=== PATIENT | female | born 1985 | race Caucasian/White ===

== ENCOUNTER 2018-12-27 10:04 | Day surgery (SDC) | payer BC ==
[2018-12-27] MEDS ORDERED: LIDOCAINE 1% W/EPI 1:200,000 MPF 30ML SQ ONE (12:01)
--- NOTE | 2018-12-27 13:01 | Operative Note ---
DATE OF SURGERY: 12/27/2018 PREOPERATIVE DIAGNOSIS: Painful ganglion of the right ring finger. POSTOPERATIVE DIAGNOSIS: Painful ganglion of the right ring finger. OPERATION: Removal of tiny ganglion right ring finger. STAFF SURGEON: Emil Carmona MD ANESTHESIA: Local digital block. PREPARATION: Chloraprep. INDIVIDUAL CONSIDERATIONS: None. PROCEDURE: The patient was taken to the operating room and placed supine on the operating room table. Her right hand was prepped and draped in the usual fashion. She had a successful induction of a digital block with 2% lidocaine. She had a small V incision basically at the radial side of the DIP joint of the finger. Sharp dissection carried down just through the skin, and then once through the skin, I just basically tried to express the ganglion out. There was a tiny I would say 1.5 mm ganglion just above the flexor tendon on a stalk, which I brought superficially and just carefully removed this. Tourniquet let down and then hemostasis was obtained just with compression. After irrigation, I approximated the skin with 4-0 nylon, and a sterile bulky dressing was applied. She was taken back to recovery in good condition. There were no complications. ALEX
== END 2018-12-27 12:30 | disposition home or self-care (01) ==
LOC: SUR 10:04
PROVIDERS: ATTEND Orthopaedic Surgery
DX: M67.441 Ganglion, right hand (principal)